=== PATIENT | male | born 1970 | race Caucasian/White ===

== ENCOUNTER 2021-04-11 09:09 | Emergency (ER) | payer BC ==
[~2021-04-11] VITALS: Ht 165.1 cm; Wt 72.6 kg
== END 2021-04-11 12:15 | disposition home or self-care (01) ==
LOC: ER 09:32
DX: J45.909 Unspecified asthma, uncomplicated (principal); J02.9 Acute pharyngitis, unspecified; Z20.822 Contact with and (suspected) exposure to COVID-19
CPT/HCPCS: 71045; 99282; U0002